=== PATIENT | male | born 1990 | race African-American/Black ===

== ENCOUNTER 2021-03-24 16:26 | Emergency (ER) | payer OTHER ==
[~2021-03-24] VITALS: Ht 175.3 cm; Wt 77.6 kg
[2021-03-24 16:30] VITALS: BP 131/78
[2021-03-24] MEDS ORDERED: NOHOMEMEDICATIONS (16:34)
[2021-03-24] MEDS ORDERED: FLEXERIL PO (17:16)
== END 2021-03-24 17:23 | disposition home or self-care (01) ==
LOC: ER 16:26
DX: S16.1XXA Strain of muscle, fascia and tendon at neck level, initial encounter (principal); Z72.89 Other problems related to lifestyle; V43.92XA Unspecified car occupant injured in collision with other type car in traffic accident, initial encounter; Y93.89 Activity, other specified; Y92.89 Other specified places as the place of occurrence of the external cause; Y99.8 Other external cause status